=== PATIENT | female | born 1935 | race Caucasian/White ===

== ENCOUNTER 2018-06-04 15:28 | Inpatient (IN) ==
[2018-06-04 15:59] LABS: Basophils # 0.1 10*3/uL (0.0-0.2); Basophils % 0.6 % (0.0-0.8); Eosinophils # 0.1 10*3/uL (0.0-0.87); Eosinophils % 0.6 % (0.00-10.9); Hematocrit 47.4 VOL% (35.7-47.0); Immature Granulocytes % 0.2 %; Immature Granulocytes Absolute 0.02 #; Lymphocytes # 2.8 10*3/uL (1.4-4.0); Lymphocytes % 25.8 % (21.3-54.2); Mean Corpuscular HGB Conc 33.8 GM/DL (32-36); Mean Corpuscular Hemoglobin 30 PG (27-34); Mean Corpuscular Volume 89.6 FL (87-102); Mean Platelet Volume 9.5 FL (9.6-12.0); Monocytes # 0.9 10*3/uL (0.11-0.8); Monocytes % 8.4 % (1.7-12.7); Neutrophils % 64.4 % (38.7-73.9); Platelet Count 286 T/CUMM (130-400); Red Blood Count 5.29 MC/CUMM (3.8-5.5); Red Cell Distribution Width 12.3 % (9.3-17.3); White Blood Count 10.8 T/CUMM (4-12)
[2018-06-04 16:11] LABS: PT Patient Result 10.8 SECS; Partial Thromboplastin Time 25.8 SECS (0-40)
[2018-06-04 16:25] LABS: Alanine Aminotransferase 19 U/L (13-56); Albumin 3.4 G/DL (3.4-5.0); Alkaline Phosphatase 126 U/L (45-117); Aspartate Amino Transferase 12 U/L (0-37); Blood Urea Nitrogen 13 MG/DL (7-18); Glucose 406 MG/DL (74-106); Osmolality,Calculated 276.8 MOS/KG (273-304); Potassium 4.2 MMOL/L (3.5-5.1); Sodium 130 MMOL/L (136-145); Total Protein 7.8 G/DL (6.4-8.3); Troponin I 0.025 NG/ML (0.00-0.045)
[2018-06-04 16:55] LABS: Apearance,Urine CLEAR (Clear); Bilirubin,Urine Negative (Negative); Blood, Urine Negative (Negative); Glucose,Urine (UA) >=500 mg/dL (Negative); Ketones,Urine Negative (Negative); Mucus,Urine Occasional /LPF (Occasional); Nitrite,Urine Negative (Negative); Protein,Urine Negative; RBC,Urine 1 /HPF (0-4); Squamous Epithelial Cell,Urine Occasional /HPF (0-10); Urine Color Yellow (Yellow); Urine Specific Gravity 1.012 (1.001-1.035); Urine Urobilinogen < 2.0 EU/DL (0.2-1.0); WBC,Urine 5 /HPF (0-6)
[2018-06-04] MEDS ORDERED: DILTIAZEM 50 MG/10 ML VIAL IV STA (18:05)
[2018-06-04] MEDS ORDERED: MAGNESIUM SULF RIDER 2 GM in PREMIX 1 EACH IV PRN (19:58)
[2018-06-04] MEDS ORDERED: ONDANSETRON 4 MG/2 ML VIAL IV PRN (19:58)
[2018-06-04] MEDS ORDERED: diphenhydrAMINE CAP 25 MG CAPSULE PO PRN (19:58)
[2018-06-04] MEDS ORDERED: GLUCAGON 1 MG VIAL IM PRN (19:58)
[2018-06-04] MEDS ORDERED: ACETAMINOPHEN 325 MG TABLET PO PRN (19:58)
[2018-06-04] MEDS ORDERED: LACTULOSE 20 GM/30 ML UDCUP PO PRN (19:58)
[2018-06-04] MEDS ORDERED: DEXTROSE 50% 25 GM/50 ML VIAL IV PRN (19:58)
[2018-06-04] MEDS ORDERED: traZODone 50 MG TABLET PO PRN (19:58)
[2018-06-04] MEDS ORDERED: MAGNESIUM SULF RIDER 4 GM in PREMIX 1 EACH IV PRN (19:58)
[2018-06-04] MEDS ORDERED: ENOXAPARIN 40 MG/0.4 ML SYRINGE SUBCUT SCH (21:00)
[2018-06-04] MEDS: INSULIN GLARGINE 100 UNIT/ML SUBCUT SCH (23:04)
[2018-06-04] MEDS: INSULIN REGULAR 100 UNIT/ML SUBCUT SCH (23:04)
[2018-06-04] MEDS: LEVOFLOXACIN INJ 500 MG in PREMIX 1 EACH IV SCH (23:05)
[2018-06-04] MEDS: SODIUM CHLORIDE 0.9% 1,000 ML IV SCH (23:05)
[2018-06-05 04:31] LABS: Basophils # 0.1 10*3/uL (0.0-0.2); Basophils % 0.4 % (0.0-0.8); Eosinophils # 0.2 10*3/uL (0.0-0.87); Eosinophils % 1.1 % (0.00-10.9); Hematocrit 44.7 VOL% (35.7-47.0); Hemoglobin 15.1 GM/DL (12.0-16.0); Immature Granulocytes % 0.4 %; Immature Granulocytes Absolute 0.06 #; Lymphocytes # 7.2 10*3/uL (1.4-4.0); Lymphocytes % 45.1 % (21.3-54.2); Mean Corpuscular HGB Conc 33.8 GM/DL (32-36); Mean Corpuscular Hemoglobin 30 PG (27-34); Mean Corpuscular Volume 89.4 FL (87-102); Mean Platelet Volume 9.7 FL (9.6-12.0); Monocytes # 1.5 10*3/uL (0.11-0.8); Monocytes % 9.7 % (1.7-12.7); Neutrophils # 6.9 10*3/uL (1.4-7.4); Neutrophils % 43.3 % (38.7-73.9); Platelet Count 280 T/CUMM (130-400); Red Cell Distribution Width 12.3 % (9.3-17.3); White Blood Count 15.9 T/CUMM (4-12)
[2018-06-05 05:02] LABS: Albumin 3.1 G/DL (3.4-5.0); Calcium 9.1 MG/DL (8.5-10.1); Osmolality,Calculated 268.1 MOS/KG (273-304); Potassium 3.3 MMOL/L (3.5-5.1); Risk Ratio 3.18; Total Protein 7.2 G/DL (6.4-8.3); VLDL CHOLESTEROL 25.8 MG/DL
[2018-06-05 05:02] LABS: Basophils # 0.1 10*3/uL (0.0-0.2); Basophils % 0.5 % (0.0-0.8); Eosinophils # 0.2 10*3/uL (0.0-0.87); Eosinophils % 1.3 % (0.00-10.9); Hematocrit 43.1 VOL% (35.7-47.0); Hemoglobin 14.5 GM/DL (12.0-16.0); Immature Granulocytes % 0.3 %; Immature Granulocytes Absolute 0.03 #; Lymphocytes # 4.5 10*3/uL (1.4-4.0); Lymphocytes % 39.8 % (21.3-54.2); Mean Corpuscular HGB Conc 33.6 GM/DL (32-36); Mean Corpuscular Hemoglobin 30 PG (27-34); Mean Corpuscular Volume 89.4 FL (87-102); Mean Platelet Volume 9.6 FL (9.6-12.0); Monocytes # 1.1 10*3/uL (0.11-0.8); Monocytes % 9.4 % (1.7-12.7); Neutrophils # 5.5 10*3/uL (1.4-7.4); Neutrophils % 48.7 % (38.7-73.9); Platelet Count 259 T/CUMM (130-400); Red Blood Count 4.82 MC/CUMM (3.8-5.5); Red Cell Distribution Width 12.2 % (9.3-17.3); White Blood Count 11.3 T/CUMM (4-12)
[2018-06-05 05:22] LABS: Osmolality,Calculated 268.2 MOS/KG (273-304); Potassium 3.4 MMOL/L (3.5-5.1)
[2018-06-05] MEDS: SODIUM CHLORIDE 0.9% 1,000 ML IV SCH ×3 (08:47→16:54)
[2018-06-05] MEDS: DILTIAZEM CD 120 MG CAPSULE PO SCH (08:49)
[2018-06-05] MEDS: INSULIN REGULAR 100 UNIT/ML SUBCUT SCH ×4 (08:49→22:55)
[2018-06-05] MEDS: PANTOPRAZOLE 40 MG TABLET PO SCH (08:51)
[2018-06-05] MEDS ORDERED: DILTIAZEM CD 120 MG CAPSULE PO SCH (09:00)
[2018-06-05] MEDS: sitaGLIPtin 25 MG TABLET PO SCH (09:28)
[2018-06-05] MEDS: POTASSIUM CHLORIDE 20 MEQ TABLET PO PRN ×3 (10:39→18:30)
[2018-06-05] MEDS ORDERED: TRIAMTERENE/HCTZ 75-50 MG TABLET PO PRN (14:45)
[2018-06-05] MEDS: SOTALOL 80 MG TABLET PO SCH ×2 (15:47→21:08)
[2018-06-05] MEDS: ALPRAZolam 0.5 MG TABLET PO PRN (15:47)
[2018-06-05] MEDS: DICLOFENAC 1% GEL 100 GM TUBE TOP PRN ×2 (16:14→22:56)
[2018-06-05] MEDS: INSULIN GLARGINE 100 UNIT/ML SUBCUT SCH (16:20)
[2018-06-05] MEDS: APIXABAN 5 MG TABLET PO SCH (21:08)
[2018-06-05] MEDS: LEVOFLOXACIN INJ 500 MG in PREMIX 1 EACH IV SCH (21:10)
[2018-06-06] MEDS: SODIUM CHLORIDE 0.9% 1,000 ML IV SCH ×3 (02:31→23:05)
[2018-06-06] MEDS: INSULIN REGULAR 100 UNIT/ML SUBCUT SCH ×4 (06:41→23:53)
[2018-06-06] MEDS ORDERED: DEXTROSE 50% 25 GM/50 ML VIAL IV PRN (08:04)
[2018-06-06] MEDS ORDERED: GLUCAGON 1 MG VIAL IM PRN (08:04)
[2018-06-06] MEDS: DILTIAZEM CD 120 MG CAPSULE PO SCH (09:51)
[2018-06-06] MEDS: IRBESARTAN 150 MG TABLET PO SCH (09:51)
[2018-06-06] MEDS: SOTALOL 80 MG TABLET PO SCH ×2 (09:51→20:56)
[2018-06-06] MEDS: ESTROGENS (CONJ) 0.625 MG TABLET PO SCH (09:51)
[2018-06-06] MEDS: PANTOPRAZOLE 40 MG TABLET PO SCH (09:52)
[2018-06-06] MEDS: sitaGLIPtin 25 MG TABLET PO SCH (09:52)
[2018-06-06] MEDS: APIXABAN 5 MG TABLET PO SCH ×2 (09:52→20:56)
[2018-06-06] MEDS: INSULIN GLARGINE 100 UNIT/ML SUBCUT SCH (17:10)
[2018-06-06] MEDS ORDERED: LEVOFLOXACIN 500 MG TABLET PO SCH (21:00)
[2018-06-07] MEDS: INSULIN REGULAR 100 UNIT/ML SUBCUT SCH ×2 (05:29→11:46)
[2018-06-07] MEDS: SODIUM CHLORIDE 0.9% 1,000 ML IV SCH ×2 (09:05→09:20)
[2018-06-07] MEDS: ESTROGENS (CONJ) 0.625 MG TABLET PO SCH (09:06)
[2018-06-07] MEDS: APIXABAN 5 MG TABLET PO SCH (09:06)
[2018-06-07] MEDS: PANTOPRAZOLE 40 MG TABLET PO SCH (09:06)
[2018-06-07] MEDS: SOTALOL 80 MG TABLET PO SCH (09:06)
[2018-06-07] MEDS: DILTIAZEM CD 120 MG CAPSULE PO SCH (09:07)
[2018-06-07] MEDS: IRBESARTAN 150 MG TABLET PO SCH (09:07)
[2018-06-07] MEDS: sitaGLIPtin 25 MG TABLET PO SCH (09:08)
[2018-06-07 11:43] VITALS: BP 141/66
[2018-06-07] MEDS: ALPRAZolam 0.5 MG TABLET PO PRN (12:01)
== END 2018-06-07 13:47 | disposition home or self-care (01) | DRG 309 ==
LOC: N.ED 15:28 → SUATTDRO 19:58 → N.EDINP 19:58 → N.TELEN 20:16
PROVIDERS: ADMIT Internal Medicine; ATTEND Internal Medicine

== ENCOUNTER 2022-09-24 21:16 | Inpatient (IN) ==
[2022-09-24 21:47] LABS: Basophils % 0.3 % (0.0-0.8); Eosinophils % 0.3 % (0.00-10.9); Hematocrit 41.9 VOL% (35.7-47.0); Hemoglobin 14.3 GM/DL (12.0-16.0); Immature Granulocytes % 0.2 %; Immature Granulocytes Absolute 0.02 #; Lymphocytes # 1.5 10*3/uL (1.4-4.0); Lymphocytes % 15.5 % (21.3-54.2); Mean Corpuscular HGB Conc 34.1 GM/DL (32-36); Mean Corpuscular Volume 86.9 FL (87-102); Mean Platelet Volume 8.9 FL (9.6-12.0); Monocytes # 0.8 10*3/uL (0.11-0.8); Monocytes % 8.5 % (1.7-12.7); Neutrophils % 75.2 % (38.7-73.9); Platelet Count 211 T/CUMM (130-400); Red Blood Count 4.82 MC/CUMM (3.8-5.5); Red Cell Distribution Width 12.8 % (9.3-17.3); White Blood Count 9.7 T/CUMM (4-12)
[2022-09-24] MEDS ORDERED: NITROGLYCERIN 2% OINT 1 INCH/GM PACK TOP STA (21:54)
[2022-09-24] MEDS ORDERED: ASPIRIN 325 MG TABLET PO STA (21:54)
[2022-09-24] MEDS ORDERED: ONDANSETRON 4 MG/2 ML VIAL IV STA (21:54)
[2022-09-24] MEDS ORDERED: hydrALAZINE 20 MG/1 ML VIAL IV STA (21:54)
[2022-09-24 22:03] LABS: INR 1.3; Partial Thromboplastin Time 34.5 SECS (23.7-32.9)
[2022-09-24 22:16] LABS: Albumin 3.5 G/DL (3.4-5.0); Bilirubin,Total 0.7 MG/DL (0.20-1.00); Calcium 8.7 MG/DL (8.5-10.1); Osmolality,Calculated 254.2 MOS/KG (273-304); Potassium 4.8 MMOL/L (3.5-5.1); Total Protein 7.3 G/DL (6.4-8.2)
[2022-09-24] MEDS ORDERED: FUROSEMIDE 40 MG/4 ML VIAL IV STA (23:01)
[2022-09-24 23:44] LABS: Hyaline Casts,Urine 20 /LPF (0-3); Mucus,Urine Occasional /LPF (Occasional); RBC,Urine 11 /HPF (0-4)
[2022-09-24 23:47] LABS: Bilirubin,Urine Negative (Negative); Blood, Urine Negative (Negative); Glucose,Urine (UA) Negative (Negative); Ketones,Urine Negative (Negative); Nitrite,Urine Negative (Negative); Protein,Urine 100 mg/dL (Negative); Urine Appearance Clear (Clear); Urine Color Yellow (Yellow); Urine Specific Gravity >= 1.030 (1.001-1.035); Urine Urobilinogen 0.2 eU/dL (<2.0)
[2022-09-25] MEDS ORDERED: MAGNESIUM SULF RIDER 2 GM/50 ML PREMIX IV STA (00:06)
[2022-09-25] MEDS ORDERED: PANTOPRAZOLE 40 MG VIAL IV STA (00:06)
[2022-09-25] MEDS ORDERED: ONDANSETRON 4 MG/2 ML VIAL IV STA (00:27)
[2022-09-25] MEDS ORDERED: ONDANSETRON 4 MG/2 ML VIAL IV PRN (03:33)
[2022-09-25] MEDS ORDERED: ACETAMINOPHEN 325 MG TABLET PO PRN (03:33)
[2022-09-25] MEDS ORDERED: DEXTROSE 10% 250 ML BAG IV PRN (03:53)
[2022-09-25 04:37] LABS: Albumin 3.4 G/DL (3.4-5.0); Bilirubin,Total 0.8 MG/DL (0.20-1.00); Calcium 9.3 MG/DL (8.5-10.1); Osmolality,Calculated 246.5 MOS/KG (273-304); Potassium 4.5 MMOL/L (3.5-5.1); Total Protein 7.3 G/DL (6.4-8.2)
[2022-09-25 06:19] LABS: Basophils % 0.2 % (0.0-0.8); Eosinophils % 0.1 % (0.00-10.9); Hematocrit 39.4 VOL% (35.7-47.0); Hemoglobin 13.7 GM/DL (12.0-16.0); Immature Granulocytes % 0.4 %; Immature Granulocytes Absolute 0.05 #; Lymphocytes # 1.2 10*3/uL (1.4-4.0); Lymphocytes % 9.6 % (21.3-54.2); Mean Corpuscular HGB Conc 34.8 GM/DL (32-36); Mean Corpuscular Volume 86.4 FL (87-102); Mean Platelet Volume 8.8 FL (9.6-12.0); Monocytes # 0.9 10*3/uL (0.11-0.8); Monocytes % 7.7 % (1.7-12.7); Platelet Count 201 T/CUMM (130-400); Red Blood Count 4.56 MC/CUMM (3.8-5.5); Red Cell Distribution Width 12.8 % (9.3-17.3)
[2022-09-25] MEDS ORDERED: FUROSEMIDE 40 MG/4 ML VIAL IV SCH (08:00)
[2022-09-25] MEDS: INSULIN REGULAR 100 UNIT/ML SUBCUT SCH ×4 (08:16→20:39)
[2022-09-25] MEDS: LEVOTHYROXINE 137 MCG TABLET PO SCH (08:16)
[2022-09-25] MEDS ORDERED: TRIAMTERENE 50 MG CAPSULE PO SCH (09:00)
[2022-09-25] MEDS: METOPROLOL SUCCINATE XL 25 MG TABLET PO SCH ×2 (09:40→20:39)
[2022-09-25] MEDS: LOSARTAN 50 MG TABLET PO SCH (09:40)
[2022-09-25] MEDS: APIXABAN 5 MG TABLET PO SCH ×2 (09:40→20:39)
[2022-09-25] MEDS: amLODIPine 5 MG TABLET PO SCH (09:40)
[2022-09-25] MEDS: PANTOPRAZOLE 40 MG TABLET PO SCH (09:40)
[2022-09-25] MEDS: ALPRAZolam 0.5 MG TABLET PO PRN ×3 (09:41→23:43)
[2022-09-25 11:09] LABS: Calcium 8.9 MG/DL (8.5-10.1); Osmolality,Calculated 250.1 MOS/KG (273-304); Potassium 4.4 MMOL/L (3.5-5.1)
[2022-09-25 14:31] LABS: Calcium 9.7 MG/DL (8.5-10.1); Osmolality,Calculated 249.2 MOS/KG (273-304); Potassium 5.1 MMOL/L (3.5-5.1)
[2022-09-25] MEDS: TOLVAPTAN 15 MG TABLET PO SCH (14:40)
[2022-09-26 05:56] LABS: Calcium 9.6 MG/DL (8.5-10.1); Osmolality,Calculated 251.6 MOS/KG (273-304); Potassium 4.8 MMOL/L (3.5-5.1)
[2022-09-26] MEDS: LEVOTHYROXINE 137 MCG TABLET PO SCH (06:17)
[2022-09-26] MEDS: INSULIN REGULAR 100 UNIT/ML SUBCUT SCH ×4 (08:07→21:13)
[2022-09-26] MEDS: amLODIPine 5 MG TABLET PO SCH (09:16)
[2022-09-26] MEDS: APIXABAN 5 MG TABLET PO SCH ×2 (09:16→21:09)
[2022-09-26] MEDS: TOLVAPTAN 15 MG TABLET PO SCH (09:17)
[2022-09-26] MEDS: LOSARTAN 50 MG TABLET PO SCH (09:17)
[2022-09-26] MEDS: METOPROLOL SUCCINATE XL 25 MG TABLET PO SCH ×2 (09:17→21:09)
[2022-09-26] MEDS: PANTOPRAZOLE 40 MG TABLET PO SCH (09:17)
[2022-09-26] MEDS: ALPRAZolam 0.5 MG TABLET PO PRN ×2 (10:31→21:14)
[2022-09-26] MEDS: FUROSEMIDE 40 MG/4 ML VIAL IV SCH (16:07)
[2022-09-27 05:40] LABS: Basophils % 0.4 % (0.0-0.8); Eosinophils # 0.1 10*3/uL (0.0-0.87); Eosinophils % 0.8 % (0.00-10.9); Hematocrit 37.6 VOL% (35.7-47.0); Hemoglobin 12.7 GM/DL (12.0-16.0); Immature Granulocytes % 0.4 %; Immature Granulocytes Absolute 0.03 #; Lymphocytes % 12.9 % (21.3-54.2); Mean Corpuscular HGB Conc 33.8 GM/DL (32-36); Mean Corpuscular Volume 88.1 FL (87-102); Mean Platelet Volume 9.3 FL (9.6-12.0); Monocytes # 1.1 10*3/uL (0.11-0.8); Monocytes % 13.4 % (1.7-12.7); Neutrophils % 72.1 % (38.7-73.9); Platelet Count 182 T/CUMM (130-400); Red Blood Count 4.27 MC/CUMM (3.8-5.5); Red Cell Distribution Width 13.1 % (9.3-17.3)
[2022-09-27 05:53] LABS: Osmolality,Calculated 263.2 MOS/KG (273-304); Potassium 4.3 MMOL/L (3.5-5.1)
[2022-09-27] MEDS: LEVOTHYROXINE 137 MCG TABLET PO SCH (05:55)
[2022-09-27] MEDS: LOSARTAN 50 MG TABLET PO SCH (09:35)
[2022-09-27] MEDS: PANTOPRAZOLE 40 MG TABLET PO SCH (09:35)
[2022-09-27] MEDS: METOPROLOL SUCCINATE XL 25 MG TABLET PO SCH ×2 (09:35→21:35)
[2022-09-27] MEDS: APIXABAN 5 MG TABLET PO SCH ×2 (09:35→21:35)
[2022-09-27] MEDS: FUROSEMIDE 40 MG/4 ML VIAL IV SCH (09:35)
[2022-09-27] MEDS: amLODIPine 5 MG TABLET PO SCH (09:35)
[2022-09-27] MEDS: TOLVAPTAN 15 MG TABLET PO SCH (09:39)
[2022-09-27] MEDS: INSULIN REGULAR 100 UNIT/ML SUBCUT SCH ×2 (09:42→12:28)
[2022-09-27] MEDS: OXACILLIN 2,000 MG in SODIUM CHLORIDE 0.9% 100 ML IV SCH ×3 (14:14→22:45)
[2022-09-27] MEDS: INSULIN LISPRO 100 UNIT/ML SUBCUT SCH ×2 (18:41→21:35)
[2022-09-27] MEDS: ALPRAZolam 0.5 MG TABLET PO PRN (21:35)
[2022-09-28] MEDS: OXACILLIN 2,000 MG in SODIUM CHLORIDE 0.9% 100 ML IV SCH ×6 (02:58→21:03)
[2022-09-28 05:29] LABS: Basophils # 0.1 10*3/uL (0.0-0.2); Basophils % 0.8 % (0.0-0.8); Eosinophils # 0.1 10*3/uL (0.0-0.87); Eosinophils % 1.3 % (0.00-10.9); Hematocrit 38.3 VOL% (35.7-47.0); Hemoglobin 12.7 GM/DL (12.0-16.0); Immature Granulocytes % 0.4 %; Immature Granulocytes Absolute 0.03 #; Lymphocytes # 1.6 10*3/uL (1.4-4.0); Lymphocytes % 21.9 % (21.3-54.2); Mean Corpuscular HGB Conc 33.2 GM/DL (32-36); Mean Corpuscular Volume 89.3 FL (87-102); Mean Platelet Volume 8.9 FL (9.6-12.0); Monocytes # 0.9 10*3/uL (0.11-0.8); Neutrophils % 62.6 % (38.7-73.9); Platelet Count 183 T/CUMM (130-400); Red Blood Count 4.29 MC/CUMM (3.8-5.5); Red Cell Distribution Width 13.2 % (9.3-17.3); White Blood Count 7.1 T/CUMM (4-12)
[2022-09-28] MEDS: LEVOTHYROXINE 137 MCG TABLET PO SCH (05:53)
[2022-09-28 05:55] LABS: Calcium 9.1 MG/DL (8.5-10.1); Osmolality,Calculated 270.5 MOS/KG (273-304); Potassium 4.3 MMOL/L (3.5-5.1)
[2022-09-28] MEDS: METOPROLOL SUCCINATE XL 25 MG TABLET PO SCH ×2 (08:50→20:48)
[2022-09-28] MEDS: LOSARTAN 50 MG TABLET PO SCH (08:50)
[2022-09-28] MEDS: TOLVAPTAN 15 MG TABLET PO SCH (08:50)
[2022-09-28] MEDS: APIXABAN 5 MG TABLET PO SCH ×2 (08:51→20:48)
[2022-09-28] MEDS: FUROSEMIDE 40 MG/4 ML VIAL IV SCH (08:51)
[2022-09-28] MEDS: amLODIPine 5 MG TABLET PO SCH (08:51)
[2022-09-28] MEDS: PANTOPRAZOLE 40 MG TABLET PO SCH (08:52)
[2022-09-28] MEDS: INSULIN LISPRO 100 UNIT/ML SUBCUT SCH ×4 (08:55→20:54)
[2022-09-28] MEDS: ALPRAZolam 0.5 MG TABLET PO PRN (20:50)
[2022-09-29] MEDS: OXACILLIN 2,000 MG in SODIUM CHLORIDE 0.9% 100 ML IV SCH ×6 (03:06→21:56)
[2022-09-29] MEDS: LEVOTHYROXINE 137 MCG TABLET PO SCH (05:53)
[2022-09-29] MEDS: INSULIN LISPRO 100 UNIT/ML SUBCUT SCH ×4 (07:47→22:04)
[2022-09-29] MEDS: PANTOPRAZOLE 40 MG TABLET PO SCH (09:17)
[2022-09-29] MEDS: amLODIPine 5 MG TABLET PO SCH (09:17)
[2022-09-29] MEDS: FUROSEMIDE 40 MG/4 ML VIAL IV SCH (09:17)
[2022-09-29] MEDS: LOSARTAN 50 MG TABLET PO SCH (09:17)
[2022-09-29] MEDS: sitaGLIPtin 25 MG TABLET PO SCH (09:17)
[2022-09-29] MEDS: METOPROLOL SUCCINATE XL 25 MG TABLET PO SCH ×2 (09:17→21:57)
[2022-09-29] MEDS: APIXABAN 5 MG TABLET PO SCH ×2 (09:17→21:57)
[2022-09-29] MEDS: ALPRAZolam 0.5 MG TABLET PO PRN (21:57)
[2022-09-30] MEDS: OXACILLIN 2,000 MG in SODIUM CHLORIDE 0.9% 100 ML IV SCH ×3 (01:23→09:55)
[2022-09-30] MEDS: LEVOTHYROXINE 137 MCG TABLET PO SCH (05:31)
[2022-09-30] MEDS: INSULIN LISPRO 100 UNIT/ML SUBCUT SCH ×2 (07:41→11:11)
[2022-09-30] MEDS: FUROSEMIDE 40 MG/4 ML VIAL IV SCH (09:54)
[2022-09-30] MEDS: LOSARTAN 50 MG TABLET PO SCH (09:54)
[2022-09-30] MEDS: PANTOPRAZOLE 40 MG TABLET PO SCH (09:54)
[2022-09-30] MEDS: METOPROLOL SUCCINATE XL 25 MG TABLET PO SCH (09:54)
[2022-09-30] MEDS: amLODIPine 5 MG TABLET PO SCH (09:54)
[2022-09-30] MEDS: APIXABAN 5 MG TABLET PO SCH (09:54)
[2022-09-30] MEDS: sitaGLIPtin 25 MG TABLET PO SCH (09:54)
[2022-09-30 11:37] VITALS: BP 132/75
[2022-09-30] MEDS: ALPRAZolam 0.5 MG TABLET PO PRN (12:44)
== END 2022-09-30 14:34 | disposition home or self-care (01) | DRG 291 ==
LOC: N.ED 21:16 → N.EDINP 09-25 03:33 → SUATTDRO 09-25 03:33 → N.3E 09-25 12:00
PROVIDERS: ADMIT Internal Medicine; ATTEND Emergency Medicine